=== PATIENT | female | born 1955 | race Caucasian/White ===

== ENCOUNTER → 2017-06-27 | Outpatient (CLI) | payer BC | LOC: COL.RAD 08:29 | DX: M16.11 Unilateral primary osteoarthritis, right hip (principal) | CPT/HCPCS: J3301; Q9967 ==

== ENCOUNTER → 2017-11-09 | Outpatient (CLI) | payer BC | LOC: COL.RAD 10:30 | DX: M25.551 Pain in right hip (principal) | CPT/HCPCS: J3301; Q9967 ==

== ENCOUNTER → 2018-01-30 | Outpatient (CLI) | payer BC ==
[2018-01-30 13:41] LABS: HIV 1/2 Antibodies Non-Reactive; HIV-1p24 Antigen Non-Reactive
== END ==
LOC: COL.LAB 12:00
PROVIDERS: Orthopaedic Surgery
DX: Z01.812 Encounter for preprocedural laboratory examination (principal); M16.11 Unilateral primary osteoarthritis, right hip

== ENCOUNTER → 2018-08-25 | Outpatient (CLI) | payer BC | LOC: COL.LAB 10:46 | DX: M19.90 Unspecified osteoarthritis, unspecified site (principal); Z79.899 Other long term (current) drug therapy ==

== ENCOUNTER → 2019-08-08 | Outpatient (CLI) | payer BC | LOC: MC.RAD 16:07 | DX: Z12.31 Encounter for screening mammogram for malignant neoplasm of breast (principal) ==

== ENCOUNTER → 2020-08-08 | Outpatient (CLI) | payer BC | LOC: MC.RAD 09:00 | DX: Z12.31 Encounter for screening mammogram for malignant neoplasm of breast (principal) ==

== ENCOUNTER → 2021-09-10 | Outpatient (CLI) | payer BC | LOC: MC.RAD 10:45 | DX: Z12.31 Encounter for screening mammogram for malignant neoplasm of breast (principal) ==

== ENCOUNTER 2022-12-22 09:15 | Day surgery (SDC) | payer MEDICARE, OTHER ==
[~2022-12-22] VITALS: Ht 167.6 cm; Wt 82.7 kg
[2022-12-22 09:40] VITALS: BP 148/79; PULSE 93; TEMP 98.1
[2022-12-22] MEDS ORDERED: HYZAAR 25 MG-101 TAB PO (10:01)
[2022-12-22] MEDS ORDERED: ASPIRIN 32325 MG/TAB PO (10:02)
[2022-12-22] MEDS ORDERED: ONE-A-DAY WOMEN1 TAB (10:03)
[2022-12-22] MEDS ORDERED: LEXAPRO 10MG10 MG PO (10:03)
[2022-12-22] MEDS ORDERED: LUTEIN20 M1 PO (10:05)
[2022-12-22 10:50] VITALS: BP 124/78; PULSE 82; TEMP 97.6
[2022-12-22 11:00] VITALS: BP 126/80; PULSE 81
[2022-12-22 11:15] VITALS: BP 132/71; PULSE 74
--- NOTE | 2022-12-22 11:29 | NUR ---
1050- PATIENT RETURNS TO [facility] [place] [facility] VIA CART. PT AWAKE AND ALERT. RESPIRATIONS UNLABORED. AMBULATED TO RECLINER CHAIR WITH 2:1 SBA. PT DENIES NAUSEA OR ABDOMINAL PAIN. HOOKED UP TO MONITOR AND VS OBTAINED. CALL LIGHT AT SIDE AND PRESENT. 1056- PATIENT TOLERATING APPLE JUICE AND WARM MUFFIN WITHOUT NAUSEA. 1105- DR. WELLS IN ROOM SPEAKING WITH PATIENT. 1115- D/C INSTRUCTIONS REVIEWED WITH PATIENT. PT VERBALIZED UNDERSTANDING AND A COPY OF INSTRUCTIONS PROVIDED IN D/C FOLDER. 1120- PATIENT DRESSES SELF. 1129- PATIENT DISCHARGED FROM UNIT VIA W/C TO A PERSONAL VEHICLE. PT LEFT HOSPITAL IN STABLE CONDITION.
== END 2022-12-22 11:29 | disposition home or self-care (01) ==
LOC: SDCO 09:15
DX: Z12.11 Encounter for screening for malignant neoplasm of colon (principal); D12.5 Benign neoplasm of sigmoid colon; K57.30 Diverticulosis of large intestine without perforation or abscess without bleeding; G47.33 Obstructive sleep apnea (adult) (pediatric); Z80.0 Family history of malignant neoplasm of digestive organs
CPT/HCPCS: J2704; J7120

== ENCOUNTER → 2023-12-06 | Outpatient (CLI) | payer MEDICARE, OTHER ==
[~2023-12-06] MED LIST: ASPIRIN 32325 MG/TAB PO; HYZAAR 25 MG-101 TAB PO; LEXAPRO 10MG10 MG PO; LUTEIN20 M1 PO; ONE-A-DAY WOMEN1 TAB
== END ==
LOC: MC.RAD 11:15
DX: Z12.31 Encounter for screening mammogram for malignant neoplasm of breast (principal)